=== PATIENT | female | born 1985 | race Caucasian/White ===

== ENCOUNTER 2019-12-21 14:00 | Inpatient (IN) | payer OTHER ==
[2019-12-21] MEDS: ELECTROLYTE-148 SOLN 1,000 ML IV SCH ×2 (15:15→17:00)
[2019-12-21 15:40] VITALS: BMI 29.2
--- NOTE | 2019-12-21 16:32 | HP ---
Past Medical History - Admission Chief Complaint: Scheduled repeat section History of Present Illness: Chronic hypertension on Labetalol and ASA, previous CS x 2 History Source: Patient Limitations to Obtaining History: No Limitations - Past Medical History ...: 3 ...Para: 2 ...Term: 2 ...: 0 ...Spon : 0 ...Induced : 0 ...Living Children: 2 ...Multiple Gestation: 0 ...LMP: 03/30/19 ... Weeks Gestation by Dates: 38 ...EDC by Dates: 01/04/20 ...EDC by Sono: 12/28/19 - Past Surgical History Past Surgical History: Yes: Hx Myomectomy: No Hx Transabdominal Cerclage: No - Smoking History Smoking history: Never smoked Have you smoked in the past 12 months: No - Alcohol/Substance Use Hx Alcohol Use: No History of Substance Use: reports: None - Social History History of Recent Travel: No Home Medications - Allergies Allergies/Adverse Reactions: Allergies Allergy/AdvReac Type Severity Reaction Status Date / Time No Known Allergies Allergy Verified 12/16/19 15:18 - Home Medications Home Medications: Ambulatory Orders Aspirin [ASA -] 1 tab PO DAILY 12/16/19 Labetalol HCl 100 mg PO BID 12/16/19 Vitamins (Sjr) - 1 tab PO DAILY 12/16/19 Family Medical History Family History: Denies Review of Systems - Review of Systems Constitutional: reports: No Symptoms Eyes: reports: No Symptoms HENT: reports: No Symptoms Neck: reports: No Symptoms Cardiovascular: reports: No Symptoms Respiratory: reports: No Symptoms Gastrointestinal: reports: No Symptoms Genitourinary: reports: No Symptoms Breasts: reports: No Symptoms Reported Musculoskeletal: reports: No Symptoms Integumentary: reports: No Symptoms Neurological: reports: No Symptoms Endocrine: reports: No Symptoms Hematology/Lymphatic: reports: No Symptoms Psychiatric: reports: No Symptoms Physical Exam - Maternity Vital Signs: Vital Signs Temperature 97.9 F 12/21/19 15:12 Pulse Rate 96 H 12/21/19 15:12 Respiratory Rate 12/21/19 15:12 Blood Pressure 122/86 12/21/19 15:12 O2 Sat by Pulse Oximetry (%) - Abdominal Exam/OB Number of Fetuses: Single Presentation: Vertex Regularity: Irritability Monitor Mode: External Heart Rate (range): 125 Category: I Decelerations: None - Vaginal Exam/OB Vaginal Bleeding: No Speculum Exam: No - Physical Exam Edema: No Problem List - Problems (1) Previous delivery affecting Problems reviewed: Yes Code(s): O34.219 - MATERNAL CARE FOR UNSP TYPE SCAR FROM PREVIOUS DEL Assessment/Plan 34 year old at 38w with chronic hypertension on labetalol Previous CS x 2, for repeat delivery
[2019-12-21] MEDS ORDERED: CITRIC ACID/SODIUM CITRATE 30 ML UNIT-DOSE CUP PO ONE (16:42)
[2019-12-21] MEDS ORDERED: OXYTOCIN 20 UNITS in 0.9% NS 20 UNIT/1,000 ML INFUS.BAG IV ONE (16:50)
[2019-12-21] MEDS ORDERED: morphine SULFATE/Preservative Free 0.5 MG/ML (1cc Syringe) ONE (16:52)
[2019-12-21] MEDS ORDERED: ePHEDrine SULFATE 50 MG/1 ML AMPULE ONE (16:52)
[2019-12-21] MEDS ORDERED: PHENYLEPHRINE HCL 10 MG/1 ML SINGLE DOSE VIAL ONE (17:05)
[2019-12-21] MEDS ORDERED: ceFAZolin SODIUM 1 GM VIAL ONE (17:09)
[2019-12-21] MEDS ORDERED: OXYTOCIN 10 UNITS/ML VIAL ONE (17:24)
[2019-12-21] MEDS: OXYTOCIN 20 UNITS in 0.9% NS 20 UNIT/1,000 ML INFUS.BAG IV SCH ×2 (17:28→18:30)
[2019-12-21 18:16] LABS: CORD BASE EXCESS -4.7 mmol/L (0-2); CORD HCO3 20.1 mmHg (20-29); CORD PCO2 36.6 mmHg (30-78); CORD pH 7.358 (7.14-7.44)
[2019-12-21 18:19] LABS: CORD BASE EXCESS -4.3 mmol/L (0-2); CORD HCO3 20.2 mmHg (20-29); CORD PCO2 35.7 mmHg (30-78); CORD pH 7.371 (7.14-7.44)
[2019-12-21] MEDS ORDERED: oxyCODONE HCL 5 MG TABLET PO PRN ×2 (18:35)
[2019-12-21] MEDS ORDERED: METHYLERGONOVINE MALEATE 0.2 MG/1 ML AMP IM PRN (18:35)
[2019-12-21] MEDS ORDERED: ONDANSETRON 4 MG/2 ML VIAL IVPUSH PRN (18:51)
--- NOTE | 2019-12-21 18:52 | OP ---
Operative Note - Note: Operative Date: 12/21/19 Pre-Operative Diagnosis: 38w with previous CS x 2, chronic hypertension Operation: Repeat delivery Findings: live female 9/10 clear amniotic fluid mod amount adhesions uterus to abd wall normal ovaries and tubes Surgeon: Cathie Oquendo Accuracy Expert: Yash Lindsey Anesthesia: Spinal Estimated Blood Loss (mls): 800 Drains & Tubes with Location: [facility]
[2019-12-21] MEDS ORDERED: KETOROLAC TROMETHAMINE 30 MG/1 ML VIAL IVPUSH PRN (21:24)
[2019-12-22] MEDS: CEFAZOLIN 1 GM/D5W 1 GM/50 ML BAG IVPB SCH ×3 (02:56→17:21)
[2019-12-22] MEDS ORDERED: OXYTOCIN 20 UNITS in 0.9% NS 20 UNIT/1,000 ML INFUS.BAG IV ONE (06:41)
--- NOTE | 2019-12-22 07:40 | PN ---
Post Progress Note - Subjective Subjective: Denies complaints No headache, blurry vision or epigastric pain Tolerating fluids Type of Delivery: Repeat C/S Vital Signs: Vital Signs Temperature 98.7 F 12/22/19 06:00 Pulse Rate 106 H 12/22/19 06:00 Respiratory Rate 12/22/19 06:00 Blood Pressure 107/71 12/22/19 06:00 O2 Sat by Pulse Oximetry (%) 100 12/21/19 19:30 Breast Exam: Yes: Soft Uterus: Yes: Fundus Firm Incision: Yes: Dressing dry and intact Abdomen/GI: Yes: Abdomen soft Lochia: Yes: Rubra Lochia, amount: Moderate Extremities: Yes: Calves non-tender Problem List - Problems (1) Previous delivery affecting Code(s): O34.219 - MATERNAL CARE FOR UNSP TYPE SCAR FROM PREVIOUS DEL Assessment/Plan s/p repeat delivery post op day 1 CHTN on labetalol - hold for now, monitor BP Plan: OOB regular diet ambulation pain management vital signs anticipate routine discharge
[2019-12-22 07:55] LABS: BASO % 0.5 % (0-2.0); EOS % 1.2 % (0-4.5); HEMATOCRIT 34.6 % (32.4-45.2); HEMOGLOBIN 11.6 GM/dL (10.7-15.3); MCH 31.6 pg (25.7-33.7); MCHC 33.5 g/dl (32.0-36.0); MEAN CELL VOLUME 94.4 fl (80-96); MEAN PLT VOLUME 9.3 fl (7.5-11.1); MONO % 10.1 % (3.8-10.2); NEUT % 74.2 % (42.8-82.8); PLATELET COUNT 150 K/MM3 (134-434); RBC 3.67 M/mm3 (3.60-5.2); WHITE BLOOD COUNT 7.5 K/mm3 (4.0-10.0)
--- NOTE | 2019-12-22 10:02 | PN ---
Progress Note (short form) - Note Progress Note: Anesthesia post op note POD#1 S/P under spinal with duramorph. VSS. Pain well controlled. Scale4-5/10. No apparent post anesthesia complications.
[2019-12-22] MEDS: IBUPROFEN 600 MG TABLET (FP) PO PRN ×2 (10:33→17:20)
[2019-12-22] MEDS: ACETAMINOPHEN 325 MG TABLET (FP) PO PRN ×2 (10:33→17:21)
[2019-12-22] MEDS ORDERED: BISACODYL 10 MG SUPP.RECT RC PRN (18:35)
[2019-12-23] MEDS: IBUPROFEN 600 MG TABLET (FP) PO PRN ×3 (00:12→13:32)
[2019-12-23] MEDS: ACETAMINOPHEN 325 MG TABLET (FP) PO PRN ×3 (00:15→13:32)
[2019-12-23] MEDS: SIMETHICONE 80 MG TAB.CHEW (FP) PO PRN ×2 (06:05→13:33)
[2019-12-23 10:52] VITALS: BP 112/74; PULSE 85; TEMP 97.8
--- NOTE | 2019-12-23 11:51 | PN ---
Post Progress Note Type of Delivery: Repeat C/S Vital Signs: Vital Signs Temperature 97.8 F 12/23/19 10:00 Pulse Rate 85 12/23/19 10:00 Respiratory Rate 18 12/23/19 10:00 Blood Pressure 112/74 12/23/19 10:00 O2 Sat by Pulse Oximetry (%) 100 12/21/19 19:30 Breast Exam: Yes: Soft Uterus: Yes: Fundus Firm, Fundus below umbilicus, Non-tender Incision: Yes: Sutures intact Abdomen/GI: Yes: Abdomen soft, Tolerating PO Lochia: Yes: Rubra Lochia, amount: Small Extremities: Yes: Calves non-tender Activity: Ambulating - Labs Labs: CBC WBC 7.5 K/mm3 (4.0-10.0) 12/22/19 07:25 RBC 3.67 M/mm3 (3.60-5.2) 12/22/19 07:25 Hgb 11.6 GM/dL (10.7-15.3) 12/22/19 07:25 Hct 34.6 % (32.4-45.2) 12/22/19 07:25 MCV 94.4 fl (80-96) 12/22/19 07:25 MCH 31.6 pg (25.7-33.7) 12/22/19 07:25 MCHC 33.5 g/dl (32.0-36.0) 12/22/19 07:25 RDW 14.0 % (11.6-15.6) 12/22/19 07:25 Plt Count 150 K/MM3 (134-434) 12/22/19 07:25 MPV 9.3 fl (7.5-11.1) 12/22/19 07:25 Absolute Neuts (auto) 5.5 K/mm3 (1.5-8.0) 12/22/19 07:25 Neutrophils % 74.2 % (42.8-82.8) 12/22/19 07:25 Lymphocytes % 14.0 % (8-40) D 12/22/19 07:25 Monocytes % 10.1 % (3.8-10.2) 12/22/19 07:25 Eosinophils % 1.2 % (0-4.5) 12/22/19 07:25 Basophils % 0.5 % (0-2.0) 12/22/19 07:25 Nucleated RBC % 0 % (0-0) 12/22/19 07:25 Assessment/Plan S/P delivery, pod # 2, stable Discharge home.
--- NOTE | 2019-12-23 11:54 | DS ---
Physical Exam-RN UNIT MANAGER Vital Signs: Vital Signs Temperature 97.8 F 12/23/19 10:00 Pulse Rate 85 12/23/19 10:00 Respiratory Rate 18 12/23/19 10:00 Blood Pressure 112/74 12/23/19 10:00 O2 Sat by Pulse Oximetry (%) 100 12/21/19 19:30 Constitutional: Yes: Well Nourished Eyes: Yes: WNL HENT: Yes: WNL Neck: Yes: WNL Cardiovascular: Yes: WNL Respiratory: Yes: WNL Gastrointestinal: Yes: WNL Renal/: Yes: WNL Pelvis: Yes: WNL External Genitalia: Yes: Normal Vaginal Exam: Yes: Normal Cervix: Yes: Normal Uterus: Yes: Normal Adnexa: Normal: Bilateral ....Post : Yes: Uterus firm Breast(s): Yes: WNL Musculoskeletal: Yes: WNL Extremities: Yes: WNL Edema: No Integumentary: Yes: WNL Wound/Incision: Yes: Clean/Dry Neurological: Yes: WNL ...Motor Strength: WNL Psychiatric: Yes: WNL Labs: CBC, BMP 12/22/19 07:25 Delivery - Delivery Section: Repeat Type of Anesthesia: Spinal Episiotomy/Laceration: None EBL (cc): 800 Delivery, Single - Stages of Labor Date of Delivery: 12/21/19 Time of Delivery: 17:27 Time Placenta Delivered: 17:28 - Condition of Staff Services Manager/Manager Engagement Present: Yes Name: Mell Buckner Infant Gender: Female Weight: 3.118 kg Position: Right, OA Total Hours ROM (Hrs/Mins): 1min - 1 Minute Total Score: 9 5 Minutes Total Score: 10 - Feeding Plan Initial Plan: Exclusive throughout hospitalization Discharge Summary Problems reviewed: Yes Reason For Visit: ADMIT CSECTION Current Active Problems Previous delivery affecting (Acute) Condition: Stable - Instructions Disposition: HOME - Home Medications Comprehensive Discharge Medication List: Ambulatory Orders Aspirin [ASA -] 1 tab PO DAILY 12/16/19 Labetalol HCl 100 mg PO BID 12/16/19 Vitamins (Sjr) - 1 tab PO DAILY 12/16/19
--- NOTE | 2019-12-27 17:12 | PATH ---
Surgical Pathology Report Patient Name: RUTH BRITO Med. Rec. #: [id number] /Age/Gender: 1985 (Age: 34) / F Account: [id number] Location: [facility] OBS/TELEVISION SERVICER Taken: 12/21/2019 Received: 12/23/2019 Reported: 12/27/2019 Physicians: Cathie Oquendo M.D. Specimen(s) Received PLACENTA Clinical History , 38 weeks, repeat Final Diagnosis PLACENTA, SECTION: 566 G THIRD TRIMESTER PLACENTA WITH TRIVASCULAR UMBILICAL CORD AND UNREMARKABLE PLACENTAL MEMBRANES. Electronically Signed Ruth Roberts M.D. Gross Description The specimen is received fresh labeled placenta and is a 566 gram, 20.0 x 16.5 x 3.0 cm. placenta with attached membranes and umbilical cord. The attached membranes are kirk, translucent with focal opacities and insert marginally. The umbilical cord measures 15 cm. in length and averages 1 cm. in diameter. The cord inserts eccentrically, 5.5 cm. to the nearest margin. No true knots or strictures are identified. Cut surface of the umbilical cord reveals 3 vessels. The surface is mendez-blue with minimal fibrin deposition and appropriate caliber vessels. The maternal surface is red-brown with focal defects. Sectioning reveals red-brown, spongy parenchyma. No lesions are identified. Web Manager sections are submitted in three cassettes as follows: 1- membrane rolls and umbilical cord; 2-3- full thickness sections of placenta. /12/26/2019 [facility]12/26/2019
--- NOTE | 2020-01-01 14:50 | OP ---
DATE OF OPERATION: 12/21/2019 PROCEDURE PERFORMED: Repeat section. SURGEON: Cathie Oquendo MD MAIL PROCESSING EQUIPMENT MECHANIC: Yash Lindsey MD ESTIMATED BLOOD LOSS: 800 mL. PROCEDURE: An informed consent was taken from the patient. The patient was taken to the operating room. Spinal anesthesia was initiated by the anesthesiologist. The patient was then placed in dorsal supine position with a leftward tilt. The patient was then prepped and draped in normal sterile fashion. A Pfannenstiel skin incision was performed over the old scar with the scalpel. Incision was then carried down to the fascia with Bovie. The fascia was incised with the Bovie at the midline and extended bilaterally. Two straight Yovana clamps were used to grasp the lower edge of the fascia, and the underlying rectus muscle was dissected off bluntly and sharply. The same procedure was performed in the upper portion of the fascia. The rectus muscle was then at the midline with the help of Allis clamps and the scalpel. Upon entry, moderate amount of adhesions were noted from the uterus to the anterior abdominal wall. Lysis of adhesions was performed. Good hemostasis was achieved. The bladder blade was then inserted. The lower uterine segment was identified. Lower uterine segment incision was performed with the scalpel and extended bilaterally bluntly. Amniotomy was performed, noting clear fluid. was delivered atraumatically. Female with 9/10 and was handed to the awaiting supervisor [facility]. A segment of the cord was taken for cord gases, and a sample of cord blood was taken. The placenta was then removed manually. The uterus was then exteriorized. K-clamps and Allis clamps were placed in the uterine incision to obtain hemostasis. The inside of the uterus was cleared of all clots and membranes with dry laparotomy sponges. The uterus was then repaired in 1 layer using 0 Vicryl suture in a running locking fashion. Additional [id number] sutures were placed to obtain hemostasis. The uterus was then returned to the abdominal cavity. The gutters were cleared of all clots with moist laparotomy sponges. The incision was then reinspected and found to be hemostatic. The peritoneum was then identified. It was closed with 2-0 chromic in running fashion. The fascia was then identified and repaired with 0 Vicryl suture in running fashion as well. Irrigation was performed. The subcutaneous tissue was approximated with plain gut suture. The skin was then closed with subcuticular stitches with 3-0 Vicryl suture. The patient tolerated well the procedure. The count was correct x2. The patient was then transferred to recovery room in stable condition. MD WINNIE VICK/[id number]
== END 2019-12-23 14:42 | disposition home or self-care (01) | DRG 540 ==
LOC: JLDR 14:00 → J3W 21:04
PROVIDERS: ADMIT Obstetrics & Gynecology; ATTEND Obstetrics & Gynecology
PROC: 10D00Z1 Extraction of Products of Conception, Low, Open Approach (ICD-10-PCS; principal; 2019-12-21)
DX: O82 Encounter for cesarean delivery without indication (principal); O10.013 Pre-existing essential hypertension complicating pregnancy, third trimester; O34.219 Maternal care for unspecified type scar from previous cesarean delivery; Z79.82 Long term (current) use of aspirin; N73.6 Female pelvic peritoneal adhesions (postinfective); Z37.0 Single live birth; Z3A.39 39 weeks gestation of pregnancy
CPT/HCPCS: 36415; 36600; 82803; 85025; 85461; 86999; 88307-TC